=== PATIENT | female | born 1960 | race Caucasian/White ===

== ENCOUNTER 2021-06-14 09:28 | Observation (INO) ==
[2021-06-14] MEDS ORDERED: Ondansetron 4 MG/2 ML VIAL IVP ONE (09:57)
[2021-06-14] MEDS ORDERED: Aspirin 81 MG TAB.CHEW PO ONE (09:57)
[2021-06-14] MEDS: Nitroglycerin 0.4 MG TAB.SUBL SL PRN ×2 (10:13→15:35)
[2021-06-14 10:27] LABS: Basophils # 0.1 K/mcL (0.0-0.2); Basophils % 0.7 %; Eosinophils # 0.1 K/mcL (0.0-0.6); Eosinophils % 1.8 %; Hematocrit 44.8 % (35.3-44.9); Hemoglobin 14.8 g/dL (11.5-15.4); Immature Granulocytes % 0.3 % (0-4); Lymphocytes # 2.3 K/mcL (0.6-4.6); Mean Corpuscular Hemoglobin 29.4 pg (28.0-33.3); Mean Corpuscular Volume 89.1 fL (83.0-100.0); Mean Platelet Volume 10.7 fL (9.4-12.4); Monocytes # 0.8 K/mcL (0.0-1.3); Monocytes % 10.1 %; Neutrophils # 4.2 K/mcL (1.6-8.9); Platelet Count 270 K/mcL (140-400); Red Blood Count 5.03 M/mcL (3.82-4.97); Red Cell Distribution Width 12.5 % (11.5-14.5); Segmented Neutrophils % 56.1 %; White Blood Count 7.4 K/mcL (4.3-11.1)
[2021-06-14 10:35] LABS: INR 0.9; Prothrombin Time 9.9 Seconds (9.4-12.1)
[2021-06-14 10:38] LABS: Activated Partial Thrombo Time 28.3 Seconds (26.0-36.0)
[2021-06-14 10:46] LABS: BUN/Creatinine Ratio 32 (6-26); Blood Urea Nitrogen 22 mg/dL (8-23); Carbon Dioxide 26 mEq/L (23-29); Chloride 104 mEq/L (98-107); Glucose 116 mg/dL (70-105); Osmolality,Calculated 292 (280-300); Potassium 4.1 mEq/L (3.5-5.1); Sodium 139 mEq/L (136-145); eGFR For African Americans > 60 (> 60); eGFR For Non-African Americans > 60 (> 60)
[2021-06-14 10:48] LABS: Troponin I < 0.03 ng/mL (< 0.04)
[2021-06-14] MEDS ORDERED: *HR* FentaNYL (PF) 100 MCG/2 ML VIAL IVP ONE (10:50)
[2021-06-14] MEDS ORDERED: Ondansetron 4 MG/2 ML VIAL IVP PRN (11:54)
[2021-06-14] MEDS ORDERED: Acetaminophen 325 MG TABLET PO PRN (11:54)
[2021-06-14] MEDS ORDERED: Naloxone 0.4 MG/ML INJ IVP PRN (11:54)
[2021-06-14] MEDS ORDERED: Perflutren Lipid Microsphere 1.3 ML in 0.9 % Sodium Chloride 8.7 ML IVP PRN (12:02)
[2021-06-14 19:17] VITALS: O2SAT 95
[2021-06-14] MEDS ORDERED: rOPINIRole 1 MG TABLET PO SCH (21:00)
[2021-06-15 06:41] LABS: Basophils # 0.1 K/mcL (0.0-0.2); Basophils % 0.9 %; Eosinophils # 0.1 K/mcL (0.0-0.6); Eosinophils % 2.1 %; Hematocrit 38.8 % (35.3-44.9); Immature Granulocytes % 0.3 % (0-4); Lymphocytes # 2.5 K/mcL (0.6-4.6); Lymphocytes % 37.1 %; Mean Corpuscular HGB Conc 33.5 g/dL (31.6-35.5); Mean Corpuscular Hemoglobin 30.2 pg (28.0-33.3); Mean Corpuscular Volume 90.2 fL (83.0-100.0); Monocytes # 0.6 K/mcL (0.0-1.3); Monocytes % 8.7 %; Neutrophils # 3.5 K/mcL (1.6-8.9); Platelet Count 236 K/mcL (140-400); Red Cell Distribution Width 12.5 % (11.5-14.5); Segmented Neutrophils % 50.9 %; White Blood Count 6.8 K/mcL (4.3-11.1)
[2021-06-15 07:10] LABS: BUN/Creatinine Ratio 34 (6-26); Blood Urea Nitrogen 25 mg/dL (8-23); Calcium 9.3 mg/dL (8.6-10.3); Carbon Dioxide 27 mEq/L (23-29); Chloride 105 mEq/L (98-107); Glucose 127 mg/dL (70-105); Magnesium 1.6 mg/dL (1.6-2.6); Osmolality,Calculated 292 (280-300); Potassium 3.7 mEq/L (3.5-5.1); Sodium 138 mEq/L (136-145); eGFR For African Americans > 60 (> 60); eGFR For Non-African Americans > 60 (> 60)
[2021-06-15 07:14] LABS: Platelet Estimate Normal (Normal); Reactive Lymphocytes Present (Not Present)
[2021-06-15 07:22] VITALS: BP 118/73; PULSE 64; TEMP 98.1
[2021-06-15] MEDS ORDERED: Aspirin 81 MG TAB.CHEW PO SCH (09:00)
[2021-06-15 11:17] LABS: Estimated Average Glucose 114 mg/dl; Hemoglobin A1C 5.6 %
== END 2021-06-15 11:05 | disposition home or self-care (01) ==
LOC: 2ANU 09:28 → EMEROOARM 09:28 → 2ANU 13:08
PROVIDERS: ADMIT Hospitalist; ATTEND Hospitalist